=== PATIENT | male | born 2000 | race Caucasian/White ===

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

== ENCOUNTER → 2020-08-05 13:11 | Outpatient (REF) | payer OTHER, SELFPAY | LOC: ANHLAB 13:11 | PROVIDERS: PCP Internal Medicine; Visit Provider Nurse Practitioner | DX: H02.825 Cysts of left lower eyelid (principal) | CPT/HCPCS: 88304 ==